=== PATIENT | male | born 1970 | race Caucasian/White ===

== ENCOUNTER → 2022-10-18 11:52 | Outpatient (BNVA) | payer MEDICAID, SELFPAY | PROVIDERS: Visit Provider Nurse Practitioner Family | DX: R50.9 Fever, unspecified (principal) | CPT/HCPCS: 87071; 87400; 87880 ==

== ENCOUNTER → 2023-07-27 10:08 | Outpatient (BNVA) | payer MEDICAID, SELFPAY | PROVIDERS: Visit Provider Nurse Practitioner Family | DX: Z00.00 Encounter for general adult medical examination without abnormal findings (principal); E55.9 Vitamin D deficiency, unspecified; R73.9 Hyperglycemia, unspecified; Z12.5 Encounter for screening for malignant neoplasm of prostate; Z13.6 Encounter for screening for cardiovascular disorders; R53.83 Other fatigue; Z12.11 Encounter for screening for malignant neoplasm of colon; R63.4 Abnormal weight loss | CPT/HCPCS: 80053; 80061; 82306; 82607; 83036; 83735; 84403; 84443; 85025; G0103 ==